=== PATIENT | female | born 1940 | race Caucasian/White ===

== ENCOUNTER 2023-04-13 08:20 | Outpatient (REF) | payer MEDICARE, SELFPAY | END 2023-04-13 08:21 | disposition home or self-care (01) | LOC: HO.SH 08:20 | PROVIDERS: Visit Provider Internal Medicine | DX: H90.3 Sensorineural hearing loss, bilateral (principal) | CPT/HCPCS: 92557 ==

== ENCOUNTER 2023-04-13 09:08 | Outpatient (REF) | payer SELFPAY ==
--- NOTE | 2023-04-13 10:00 | MHC.AU.MED ---
Medical Clearance for Hearing Instrumentation Date: 04/13/23 Patient Name: Amaya El Date of : 1940 Primary Care Provider: Debbie Loyd MD Referring Provider: Debbie Loyd MD We have seen your patient on 04/13/23 and have determined that they are a candidate for amplification (See accompanying report). Specifically, they would benefit from: Hearing aid use in both ears There is a statute that addresses Medical Evaluation Requirements prior to fitting a patient with a hearing aid. According to [place] statute 265 CMR:6.03(1), (a) General. Except as provided in 265 CMR 6.03(1)(b), a maritime engineer shall not sell a hearing aid unless the prospective user has presented to the maritime engineer a written statement signed by a licensed physician that states that the patient's hearing loss has been medically evaluated and the patient may be considered a candidate for a hearing aid. The medical evaluation must have taken place within the preceding six months. Please note: Due to the [place] Statute referenced above, we cannot accept a signature other than that of a licensed physician. ENVIRONMENTAL MANAGER and PA signatures cannot be accepted. I am in agreement with the above recommendation. There is no medical contraindication for hearing instrumentation. Physician Signature Date Physician Name (Printed)
== END 2023-04-13 09:09 | disposition home or self-care (01) ==
LOC: HO.HAP 09:08
PROVIDERS: PCP Internal Medicine; Visit Provider Internal Medicine
DX: Z46.1 Encounter for fitting and adjustment of hearing aid (principal); H90.3 Sensorineural hearing loss, bilateral
CPT/HCPCS: 92590; 92700; V5261; V5299

== ENCOUNTER 2023-04-20 13:40 | Outpatient (REF) | payer SELFPAY | END 2023-04-20 13:41 | disposition home or self-care (01) | LOC: HO.HAP 13:40 | PROVIDERS: Visit Provider Internal Medicine | DX: Z13.89 Encounter for screening for other disorder (principal) ==

== ENCOUNTER 2023-05-09 14:23 | Outpatient (REF) | payer SELFPAY | END 2023-05-09 14:24 | disposition home or self-care (01) | LOC: HO.HAP 14:23 | PROVIDERS: Visit Provider Internal Medicine | DX: Z13.89 Encounter for screening for other disorder (principal) ==

== ENCOUNTER 2023-05-16 14:11 | Outpatient (REF) | payer SELFPAY | END 2023-05-16 14:12 | disposition home or self-care (01) | LOC: HO.HAP 14:11 | PROVIDERS: Visit Provider Internal Medicine | DX: Z13.89 Encounter for screening for other disorder (principal) ==

== ENCOUNTER 2023-09-20 14:17 | Outpatient (REF) | payer SELFPAY | END 2023-09-20 14:18 | disposition home or self-care (01) | LOC: HO.HAP 14:17 | PROVIDERS: Visit Provider Internal Medicine | DX: Z46.1 Encounter for fitting and adjustment of hearing aid (principal); H90.3 Sensorineural hearing loss, bilateral | CPT/HCPCS: V5267 ==

== ENCOUNTER 2023-10-30 08:35 | Outpatient (REF) | payer SELFPAY | END 2023-10-30 08:36 | disposition home or self-care (01) | LOC: HO.HAP 08:35 | PROVIDERS: Visit Provider Internal Medicine | DX: Z13.89 Encounter for screening for other disorder (principal) ==

== ENCOUNTER 2023-11-15 08:21 | Outpatient (REF) | payer SELFPAY ==
--- NOTE | 2023-11-15 09:40 | MHC.AU.HA3 ---
Hearing Instrument Follow-Up- Binaural Date of Visit: 11/15/23 Right Ear: Make, Model, Color, Serial Number: Oticon Real 2 miniRITE-R [id number] Color: Terracotta Life Teacher Repair Warranty: 05/13/2026 Life Teacher Loss and Damage Warranty: 05/13/2026 [facility] Service Plan: 04/20/26 Battery Size: Rechargeable Adult Neuropsychologist/Slim Tube: 2/85 [place]/Dome/CShell/SlimTip:8mm double carey dome (no retention tail) Type of Wax Guard: miniFit Dispensed By: [facility] Date of Fittin04/20/2023 Left Ear: Make, Model, Color, Serial Number: Oticon Real 2 miniRITE-R [id number] Color: Terracotta Life Teacher Repair Warranty: 05/13/2026 Life Teacher Loss and Damage Warranty: 05/13/2026 [facility] Service Plan: 04/20/2026 Battery Size: Rechargeable Adult Neuropsychologist/Slim Tube: 2/85 Earmold/Dome/CShell/SlimTip: 8mm double carey dome (no retention tail) Type of Wax Guard: miniFit Dispensed By: [facility] Date of Fittin04/20/2023 Follow-Up Summary: Amaya Howe picked up repaired hearing aids. Previously had retention tails; however, she reported they often popped out of her ears and would prefer not to have them again. Advised if issues with retention/domes working their way out of her ears arise, to return so that retention tails can be reconsidered. Requested to schedule 6 month clean and check - scheduled 05/20/2024. Recommendations: Hearing instrument follow-up or maintenance as needed. Please contact our clinic with any questions or concerns. Diagnosis Code(s): Primary Diagnosis: H90.3 Bilateral Sensorineural Hearing Loss Signature: Provider: Fred Ramirez, [facility]
== END 2023-11-15 08:22 | disposition home or self-care (01) ==
LOC: HO.HAP 08:21
PROVIDERS: Visit Provider Internal Medicine
DX: Z13.89 Encounter for screening for other disorder (principal)

== ENCOUNTER 2024-03-15 16:52 | Emergency (ER) | payer MEDICARE, SELFPAY ==
--- NOTE | ~2024-03-15 | XR_ITS ---
CLINICAL HISTORY: pain, fall Exam: AP, lateral, and oblique views of the right hand. Comparison: None. Findings: Bones are osteopenic. Mild subluxation of the PIP joint of the ring finger. The middle phalanx is positioned 4 mm ulnar in relation to the proximal phalanx at the PIP joint. There is also dorsal subluxation. No yvan dislocation is identified. There is associated soft tissue swelling without a definitive fracture deformity. [id number] scattered degenerative changes are otherwise seen throughout the hand and wrist. Impression: Subluxation of the PIP joint of the ring finger as above without associated fracture. This document has been electronically signed by: Macario Sibley MD on 03/15/2024 18:01:28
--- NOTE | ~2024-03-15 | XR_ITS ---
CLINICAL HISTORY: pain Exam: AP, Grashey, and scapular Y-views of the right shoulder. Comparison: None. Findings: No fracture, dislocation, or separation. Ring osteophyte formation seen at the surgical neck of the humerus. However, no discrete cortical defects seen to suggest fracture. Humeral head is high-riding contacting the undersurface of the acromion. Moderate to severe glenohumeral joint degenerative change with joint space narrowing and osteophyte formation. Moderate AC joint DJD. Impression: No acute traumatic finding. Findings indicative of chronic full-thickness rotator cuff tear with associated degenerative findings. This document has been electronically signed by: Macario Sibley MD on 03/15/2024 18:00:04
[2024-03-15 17:00] VITALS: BP 100/54; PULSE 74; RESP 18; TEMP 36.7; O2SAT 97; BMI 32.0
--- NOTE | 2024-03-15 17:19 | ED_ITS ---
HPI - Fall General Chief Complaint: Fall Stated Complaint: right finger inj Time Seen by Provider: 03/15/24 18:28 Source: patient Mode of arrival: ambulatory Limitations: no limitations History of Present Illness ED Provider: HPI Narrative: Patient's tripped and fell on the cord landed on her right hand come here with deformity of the right ring finger no other injuries also has some pain in the right shoulder no head injury no neck injury no loss of consciousness patient not on any blood thinner patient is ambulatory in steady gait Related Data Allergies Allergy/AdvReac Type Severity Reaction Status Date / Time No Known Allergies Allergy Verified 03/15/24 17:04 Review of Systems Review of Systems: Yes all other systems are reviewed and are negative [facility] Social History Social History Advance Directives: No Advance Directives Information Provided: No Do you have a plan to hurt others: No Plan Physical Exam Vital Signs: Vital Signs: Last Vital Signs Temp 98.0 F 03/15/24 17:00 Pulse 74 03/15/24 17:00 Resp 18 03/15/24 17:00 BP 100/54 L 03/15/24 17:00 Pulse Ox 97 03/15/24 17:00 O2 Del Method Room Air 03/15/24 17:00 BMI result Body Mass Index 32.0 Appearance: Alert. Oriented X3. No acute distress. Eyes: PERRLA, No Nystagmus ENT: Pharynx normal. Oral Mucosa moist atraumatic normocephalic Neck: Normal inspection. Neck supple. CVS: Normal heart rate and rhythm. Pulses normal. Respiratory: No respiratory distress. Equal air entry bilateral, no wheezing/rales/rhonchi Abdomen: Soft and nontender. Bowel sounds are present, no mass palpable, no CVA tenderness Skin: Skin warm and dry. Normal skin color. Normal skin turgor. Extremities: No lower extremity edema. No calf tenderness right hand 3rd finger with deformity of the PIP neurovascular intact right shoulder with diffuse tenderness no bony tenderness no deformity good range of movement Neuro: Oriented X 3. No motor deficit. No sensory deficit.No cerebellar signs , cranial nerves II-XII intact Course Course Course Narrative: This is an RME: Additional HPI, ROS, PE not included below will be deferred to primary provider. RME assessment and note performed by: Cookie Saeed PA-C This is a 83-year-old female, with a history of hypertension, hyperlipidemia, who presents emergency department with complaints of right arm, and right shoulder pain status post mechanical fall which occurred today. She states that she tripped on a cord, she landed onto her right side. Denies hitting her head or LOC. She states that she dislocated her right ring finger, and was able to place this back into its original location. She reports that the pain has improved since reducing this fracture. No midline spine tenderness. She does not take anticoagulation. She is alert and oriented. Plan: CT head, neck, hand, right shoulder, further ER evaluation needed. Procedures Orthopedic Joint Reduction Joint #1: Side: right Joint Reduction Location: finger (Right 4th finger) Shoulder Technique Used (if applicable): traction/counter-traction Post-reduction neuro exam: intact Post-reduction vascular: intact Post Reduction X-Ray Obtained: No Patient Tolerated Procedure: well Medical Decision Making Medical Decision Making MDM Narrative: Patient's mechanical fall without any loss of consciousness or head injury came with right ring finger PIP dislocation which was reduced splint was applied Differential Diagnosis Differential Diagnoses: The differential diagnosis associated with the presentation includes Independent Interpretation I performed an independent interpretation of an: Plain X-Ray Discharge Plan Discharge Clinical Impression: Dislocation of finger, closed Patient Disposition: Home, Self-Care Instructions: Finger Dislocation (ED) Additional Instructions: Wear the splint for support till heals completely for next 2 weeks Tylenol/Motrin for pain Print Language: Upper Sorbian
[2024-03-15 18:44] VITALS: BP 123/69; PULSE 66; RESP 19; TEMP 36.6; O2SAT 98
[2024-03-15 19:00] VITALS: BP 123/69; PULSE 66; RESP 19; TEMP 36.6; O2SAT 98
== END 2024-03-15 19:00 | disposition home or self-care (01) ==
PROVIDERS: Emergency Provider Internal Medicine; PCP Internal Medicine
DX: S63.254A Unspecified dislocation of right ring finger, initial encounter (principal); M25.511 Pain in right shoulder; I10 Essential (primary) hypertension; W01.0XXA Fall on same level from slipping, tripping and stumbling without subsequent striking against object, initial encounter; Y93.89 Activity, other specified; Y92.89 Other specified places as the place of occurrence of the external cause; Y99.8 Other external cause status; Z79.899 Other long term (current) drug therapy
CPT/HCPCS: 26742; 73030; 73130; 99282; 99284

== ENCOUNTER → 2024-03-15 17:04 | Outpatient (BNV) | payer SELFPAY | PROVIDERS: PCP Internal Medicine; Visit Provider Radiology Diagnostic Radiology | DX: S63.234A Subluxation of proximal interphalangeal joint of right ring finger, initial encounter (principal); M75.121 Complete rotator cuff tear or rupture of right shoulder, not specified as traumatic | CPT/HCPCS: 73030; 73130 ==

== ENCOUNTER 2024-05-20 07:51 | Outpatient (REF) | payer SELFPAY | END 2024-05-20 07:52 | disposition home or self-care (01) | LOC: HO.HAP 07:51 | PROVIDERS: Visit Provider Internal Medicine | DX: Z46.1 Encounter for fitting and adjustment of hearing aid (principal); H90.3 Sensorineural hearing loss, bilateral | CPT/HCPCS: V5267 ==

== ENCOUNTER 2024-12-04 08:14 | Outpatient (REF) | payer SELFPAY | END 2024-12-04 08:15 | disposition home or self-care (01) | LOC: HO.HAP 08:14 | PROVIDERS: Visit Provider Internal Medicine | DX: Z13.89 Encounter for screening for other disorder (principal) ==